=== PATIENT | male | born 1985 | race American Indian/Alaskan Native ===

== ENCOUNTER 2021-10-21 20:36 | Emergency (ER) | payer SELFPAY ==
[2021-10-21 21:32] VITALS: BP 140/96
[2021-10-22] MEDS ORDERED: IBUPROFEN 600 MG TAB PO ONE (03:27)
[2021-10-22] MEDS ORDERED: ACETAMINOPHEN 500 MG TAB PO ONE (03:27)
--- NOTE | 2021-10-22 03:34 | Emergency Department Report ---
ED Lower Extremity HPI - General Chief Complaint: Extremity Injury, Lower Stated Complaint: RT LOWER LEG SPRAIN/ABRASIONS Source: patient Mode of arrival: Ambulatory Limitations: No Limitations - History of Present Illness Initial Comments: Patient is a 36-year-old -[place] male with no past medical history presents to the ED with complaint of acute onset persistent right lower leg pain with mild abrasions after he tripped and fell off onto an open manhole at a parking lot near a grocery store about 8 hours ago. Patient states the pain has been persistent with any ambulation or weightbearing on the right leg. Patient denies head or neck injuries, back pain, chest pain or shortness of breath, hip pain, loss of consciousness, seizures, change in vision, numbness and tingling or weakness of lower extremities bilaterally. MD Complaint: leg injury (Right lower leg injury due to fall in a manhole ) -: Sudden, hour(s) (8) Injury: Leg: Right (Right lower leg pain with swelling and abrasions) Type of Injury: blunt, other (Fall) Severity: severe Severity scale (0 -10): 7 Improves With: nothing Worsens With: weight bearing, movement, palpation Context: fall, direct blow, walking, other (Fell on a manhole) Associated Symptoms: swelling, able to partially bear weight. denies: snap/pop sensation, numbness, tingling, unable to bear weight, ambulatory - Related Data Previous Rx's Medication Instructions Recorded Last Taken Type Ibuprofen [Motrin] 800 mg PO Q8HR PRN #30 tablet 10/22/21 Unknown Rx traMADoL [Ultram] 50 mg PO Q6HR PRN #10 tablet 10/22/21 Unknown Rx Allergies Allergy/AdvReac Type Severity Reaction Status Date / Time No Known Allergies Allergy Verified 10/22/21 03:53 ED Review of Systems ROS: Stated complaint: RT LOWER LEG SPRAIN/ABRASIONS Other details as noted in HPI Constitutional: denies: chills, fever Eyes: denies: eye pain, eye discharge, vision change ENT: denies: ear pain, throat pain, dental pain, hearing loss, congestion Respiratory: denies: cough, shortness of breath, wheezing Cardiovascular: denies: chest pain, palpitations Endocrine: no symptoms reported Gastrointestinal: denies: abdominal pain, nausea, vomiting, diarrhea Genitourinary: denies: urgency, dysuria Musculoskeletal: arthralgia (Anterior right lower leg pain with mild abrasions). denies: back pain, joint swelling Skin: other (Mild abrasion of right lower leg). denies: rash, lesions Neurological: denies: headache, weakness, paresthesias Psychiatric: denies: anxiety, depression Hematological/Lymphatic: denies: easy bleeding, easy bruising ED Past Medical Hx - Medications Home Medications: Home Medications Medication Instructions Recorded Confirmed Last Taken Type Ibuprofen [Motrin] 800 mg PO Q8HR PRN #30 tablet 10/22/21 Unknown Rx traMADoL [Ultram] 50 mg PO Q6HR PRN #10 tablet 10/22/21 Unknown Rx ED Physical Exam - General Limitations: No Limitations General appearance: alert, in no apparent distress - Head Head exam: Present: atraumatic, normocephalic, normal inspection - Eye Eye exam: Present: normal appearance, PERRL, EOMI Pupils: Present: normal accommodation - ENT ENT exam: Present: normal exam, normal orophraynx, mucous membranes moist, TM's normal bilaterally, normal external ear exam - Neck Neck exam: Present: normal inspection, full ROM. Absent: tenderness - Respiratory Respiratory exam: Present: normal lung sounds bilaterally. Absent: respiratory distress, wheezes, rales, rhonchi, stridor, chest wall tenderness, accessory muscle use, decreased breath sounds, prolonged expiratory - Cardiovascular Cardiovascular Exam: Present: regular rate, normal rhythm, normal heart sounds. Absent: systolic murmur, diastolic murmur, rubs, gallop - GI/Abdominal GI/Abdominal exam: Present: soft, normal bowel sounds. Absent: distended, tenderness, guarding, rebound, hyperactive bowel sounds, hypoactive bowel sounds, organomegaly - Extremities Exam Extremities exam: Present: normal inspection, full ROM, tenderness (Palpable right lower leg tenderness with mild abrasions), normal capillary refill, calf tenderness (Right lower leg tenderness). Absent: pedal edema, joint swelling - Back Exam Back exam: Present: normal inspection, full ROM. Absent: tenderness, CVA tenderness (R), CVA tenderness (L), muscle spasm, paraspinal tenderness, vertebral tenderness - Neurological Exam Neurological exam: Present: alert, oriented X3, CN II-XII intact, normal gait, reflexes normal - Psychiatric Psychiatric exam: Present: normal affect, normal mood - Skin Skin exam: Present: warm, dry, intact, normal color, abrasion (Mild abrasions of right lower leg). Absent: rash ED Course Vital Signs 10/21/21 10/22/21 21:30 04:00 Temperature 98 F Pulse Rate 90 Respiratory 16 14 Rate Blood Pressure 140/96 [Right] O2 Sat by Pulse 98 Oximetry ED Lower Extremity MDM - Radiology Data Radiology results: report reviewed, image reviewed [facility] [address] [place] [address] XRay Report Signed Patient: INNA WHIPPLE JR MR#: [id number] : 1985 Acct:[id number] Age/Sex: 36 / M ADM Date: 10/21/21 Loc: ED Attending Dr: Ordering Physician: SELWYN ROPER Date of Service: 10/22/21 Procedure(s): XR tibia fibula 2V RT Accession Number(s): [id number] cc: SLEWYN ROPER Fluoro Time In Minutes: RIGHT TIBIA-FIBULA 2 VIEW(S) INDICATION / CLINICAL INFORMATION: right lower leg pain / injury COMPARISON: None available. FINDINGS: BONES / JOINT(S): No acute fracture or subluxation. No significant arthritis. SOFT TISSUES: No significant abnormality. ADDITIONAL FINDINGS: None. IMPRESSION: 1. No acute findings. Signer Name: Russell Severino MD Signed: 10/22/2021 4:06 AM Workstation Name: [id number] Transcribed By: TL Dictated By: Russell Severino MD Electronically Authenticated By: Russell Severino MD Signed Date/Time: 10/22/21405 DD/ 5 TD/TT: - Medical Decision Making This is a 36-year-old -[place] male with no past medical history presents to the ED with complaint of acute onset persistent right lower leg pain with mild abrasions after he tripped and fell off onto an open manhole at a parking lot near a grocery store about 8 hours ago. Patient states the pain has been persistent with any ambulation or weightbearing on the right leg. In the ED, patient is alert and oriented x3 and is not in any distress. Patient was treated for pain in the ED and right tib-fib x-ray showed no acute fractures or subluxations. Patient was discharged home on pain medications and advised to follow-up with his primary care physician in 7 to 10 days for reevaluation or return to the ED immediately if symptoms get worse. - Differential Diagnosis Leg contusion; leg abrasion; muscle strain of leg Critical care attestation.: If time is entered above; I have spent that time in minutes in the direct care of this critically ill patient, excluding procedure time. ED Disposition Clinical Impression: Contusion of right lower leg, initial encounter Muscle strain of right lower extremity Qualifiers: Encounter type: initial encounter Qualified Code(s): S86.911A - Strain of unspecified muscle(s) and tendon(s) at lower leg level, right leg, initial encounter Abrasion of right lower extremity Qualifiers: Encounter type: initial encounter Qualified Code(s): S80.811A - Abrasion, right lower leg, initial encounter Disposition: 01 HOME / SELF CARE / HOMELESS Is pt being admited?: No Does the pt Need Aspirin: No Condition: Stable Instructions: Muscle Strain, [id number], Contusion, [id number], Abrasion, [id number] Additional Instructions: The right tib-fib x-ray showed no acute fractures or subluxations. Therefore take medication with food, drink plenty of fluids and follow-up with your primary care physician in 7 to 10 days for reevaluation. Return to the ED immediately if symptoms get worse. Prescriptions: Ibuprofen [Motrin] 800 mg PO Q8HR PRN #30 tablet PRN Reason: Pain , Severe (7-10) traMADoL [Ultram] 50 mg PO Q6HR PRN #10 tablet PRN Reason: Pain Referrals: [facility] [Provider Group] - 7-10 days Forms: Work/School Release Form(ED) Time of Disposition: 03:37 Print Language: MAORI
--- NOTE | 2021-10-22 04:10 | XRay Report ---
RIGHT TIBIA-FIBULA 2 VIEW(S) INDICATION / CLINICAL INFORMATION: right lower leg pain / injury COMPARISON: None available. FINDINGS: BONES / JOINT(S): No acute fracture or subluxation. No significant arthritis. SOFT TISSUES: No significant abnormality. ADDITIONAL FINDINGS: None. IMPRESSION: 1. No acute findings. Signer Name: Russell Severino MD Signed: 10/22/2021 4:06 AM Workstation Name: [id number]
== END 2021-10-22 04:41 | disposition home or self-care (01) ==
LOC: ED 20:36
DX: S86.911A Strain of unspecified muscle(s) and tendon(s) at lower leg level, right leg, initial encounter (principal); W01.0XXA Fall on same level from slipping, tripping and stumbling without subsequent striking against object, initial encounter; Y93.89 Activity, other specified; Y92.481 Parking lot as the place of occurrence of the external cause; Y99.8 Other external cause status
CPT/HCPCS: 99283